=== PATIENT | female | born 1945 | race Caucasian/White ===

== ENCOUNTER → 2020-12-27 | Outpatient (CLI) | payer MEDICARE ==
--- NOTE | 2020-12-27 09:45 | Diagnostic Imaging Report ---
INDICATION: Arthritis. Hand pain. COMPARISON: None. FINDINGS: 3 views of the left hand were obtained and show no fractures, dislocations, or other acute bony abnormalities. Moderate degenerative changes are noted of the 1st carpometacarpal joint space. Otherwise, joint spaces are well maintained throughout. No periarticular erosions or other osteolytic lesions are seen. The soft tissues appear unremarkable. No radiopaque foreign bodies are identified. IMPRESSION: 1. No acute abnormality of the left hand. 2. Moderate degenerative changes of the 1st carpometacarpal joint space. Dictated by: Dictated on workstation # [id number]
--- NOTE | 2020-12-27 09:47 | Diagnostic Imaging Report ---
INDICATION: Wrist pain. Arthritis. COMPARISON: None. FINDINGS: 3 views of the left wrist demonstrate no acute fracture or dislocation. There are no focal osseous lesions. Moderate osteoarthritic changes are noted involving the 1st carpometacarpal joint space. No avascular necrosis is seen. The visualized soft tissue structures are unremarkable. The pronator fat pad is not displaced. There are no radio opaque foreign bodies. IMPRESSION: 1. No acute fracture or dislocation in the left wrist. 2. 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
== END ==
LOC: RAD 09:23
PROVIDERS: ATTEND Internal Medicine
DX: M18.12 Unilateral primary osteoarthritis of first carpometacarpal joint, left hand (principal)
CPT/HCPCS: 73110; 73130

== ENCOUNTER → 2021-10-29 | Outpatient (CLI) | payer MEDICARE ==
[~2021-10-29] MED LIST: BUPR-42 PO; BUPR100T7 PO
== END ==
LOC: RAD 11:00
PROVIDERS: ATTEND Nurse Practitioner Family
DX: Z12.31 Encounter for screening mammogram for malignant neoplasm of breast (principal)
CPT/HCPCS: 77063; 77067

== ENCOUNTER 2021-10-31 06:07 | Outpatient (CLI) | payer MEDICARE ==
[~2021-10-31] VITALS: Ht 162.6 cm; Wt 81.6 kg
[2021-10-31] MEDS ORDERED: BUPR100T7 PO (13:16)
[2021-10-31] MEDS ORDERED: BUPR-42 PO (13:16)
== END 2021-11-01 07:01 | disposition home or self-care (01) ==
LOC: PREOP 06:07
PROVIDERS: ATTEND Surgery
DX: Z01.818 Encounter for other preprocedural examination (principal)

== ENCOUNTER 2021-11-11 10:13 | Day surgery (SDC) | payer MEDICARE ==
[~2021-11-11] VITALS: Ht 163 cm; Wt 81.6 kg
[2021-11-11] MEDS ORDERED: HURRICAINE EXT TUBE (BENZOCAINE) XX PRN (10:15)
[2021-11-11] MEDS ORDERED: LACTATED RINGERS 1,000 ML IV STA (10:15)
[2021-11-11] MEDS ORDERED: LACTATED RINGERS 1,000 ML IV ONE (10:20)
[2021-11-11 10:30] VITALS: BP 138/63
--- NOTE | 2021-11-11 10:57 | Progress Note-Pre Operative ---
Pre-Operative Progress Note H&P Reviewed The H&P was reviewed, patient examined and no changes noted. Time Seen by Provider: 10:55 Date H&P Reviewed: Nov 11, 2021 Time H&P Reviewed: 10:55 Pre-Operative Diagnosis: Dysphagia KEYON HOLDER DO Nov 11, 2021 10:56
[2021-11-11] MEDS ORDERED: proPOfol 200 MG/20 ML (DIPRIVAN) VIAL IV ONE (11:36)
--- NOTE | 2021-11-11 11:58 | Progress Note-Post Operative ---
Post-Operative Progess Note Surgeon (s)/Development Team Lead (s) Surgeon KEYON HOLDER DO Development Team Lead: none Pre-Operative Diagnosis Dysphagia Post-Operative Diagnosis Severe Esophagitis Gastritis Hiatal hernia Procedure & Operative Findings Date of Procedure 11/11/21 Procedure Performed/Findings EGD with bx PROCEDURE NOTE: After informed consent was obtained, the patient was brought to the endoscopy suite, placed in bed in left lateral decubitus position. She was administered IV sedation by the NURSING PROGRAM MANAGER who then monitored vitals the entire time, heart rate, blood pressure and pulse ox and the scope was inserted down the mouth through the esophagus into the stomach. On the way down, noted some severe esophagitis and almost a stricture; took a picture. Pushed into the stomach and pushed past the antrum into the duodenum. Duodenum looked good. Pulled back and did a biopsy of the antrum, then retroflexed the scope and saw a moderated sized hiatal hernia 3-4 cm; took a picture of this, Then pulled the scope into the GE junction, took another picture of the hiatal hernia and then did two biopsies of the GE junction. Pushed the scope back into the stomach, suctioned all the air out of the stomach. At this point pulled the scope up the esophagus and out the mouth. The patient tolerated the procedure, and she recovered in endoscopy suite. Anesthesia Type IV sedation by anesthesia Estimated Blood Loss Estimated blood loss (mL): scant Specimens/Packing Specimens Removed antral bx body of stomach bx GE jxn bx x 2 KEYON HOLDER DO Nov 11, 2021 11:58
--- NOTE | 2021-11-11 11:59 | Endoscopy Discharge Instruct ---
Endo Procedure/Findings Findings 1.: Gastritis 2.: Hiatal Hernia 3.: Cary's Esophagus (severe esophagitis) 4.: Other Findings (??beginning of esophageal stricture) Discharge Instructions - Activity: You might feel a little sleepy until tomorrow. This is due to the medicine you received to relax you. Until tomorrow, you should: NOT drive a car, operate machinery or power tools. NOT drink any alcoholic beverages. NOT make any important decisions or sign importortant papers. Do not return to work until tomorrow, unless otherwise instructed. Resume previous activities tomorrow. Diet: Start by taking liquids. If you tolerate liquids, advance to solid food. 1.: EGD in 1 year Notify Physician - If you experience excessive bleeding, unusual abdominal pain, fever, or chest pain, contact your doctor immediately. KEYON HOLDER DO Nov 11, 2021 11:59
[2021-11-11 12:00] VITALS: BP 112/54
[2021-11-11 12:34] VITALS: BP 110/62
--- NOTE | 2021-11-11 13:22 | Anesthesia-General Post-Op ---
MAC Patient Condition Mental Status/LOC: Same as Preop Cardiovascular: Satisfactory Nausea/Vomiting: Absent Respiratory: Satisfactory Pain: Controlled Complications: Absent Post Op Complications Complications None Follow Up Care/Instructions Patient Instructions None needed. Anesthesiology Discharge Order Discharge Order Patient was doing well after the procedure, no complaints, stable vital signs, no apparent adverse anesthesia problems. RUFINA BANEGAS DO Nov 11, 2021 13:22
== END 2021-11-11 12:35 | disposition home or self-care (01) ==
LOC: ENDO 10:13
PROVIDERS: ATTEND Surgery
DX: K22.70 Barrett's esophagus without dysplasia (principal); K20.90 Esophagitis, unspecified without bleeding; K29.70 Gastritis, unspecified, without bleeding; K44.9 Diaphragmatic hernia without obstruction or gangrene; Z87.891 Personal history of nicotine dependence; Z79.52 Long term (current) use of systemic steroids

== ENCOUNTER 2021-11-12 08:57 | Outpatient (RCR) | payer MEDICARE | END 2021-11-15 09:12 | disposition home or self-care (01) | PROVIDERS: ATTEND Internal Medicine | DX: R32 Unspecified urinary incontinence (principal) ==

== ENCOUNTER → 2023-06-23 | Outpatient (CLI) | payer MEDICARE ==
--- NOTE | 2023-06-23 12:11 | Diagnostic Imaging Report ---
PROCEDURE: US Renal Bilateral. TECHNIQUE: Multiple real-time grayscale images were obtained over the kidneys in various projections bilaterally. INDICATION: Chronic kidney disease. FINDINGS: The right kidney is 8.7 cm and the left 8.1 cm. There is a benign 1 cm cyst off the lower pole of the left kidney. No hydronephrosis. No echogenic or shadowing stone. Urinary bladder appeared normal. Ureteral jets patency bilaterally confirmed. IMPRESSION: Kidneys somewhat small bilaterally. There is a benign left renal cyst; unobstructed kidneys and bladder appeared otherwise normal. Dictated by: Dictated on workstation # [id number]
== END ==
LOC: RAD 09:26
PROVIDERS: ATTEND Internal Medicine Nephrology
DX: N28.1 Cyst of kidney, acquired (principal); N18.32 Chronic kidney disease, stage 3b; D63.1 Anemia in chronic kidney disease; R60.0 Localized edema; R53.83 Other fatigue; M19.90 Unspecified osteoarthritis, unspecified site; R51.9 Headache, unspecified
CPT/HCPCS: 76770